=== PATIENT | female | born 1975 | race Asian ===

== ENCOUNTER 2020-08-09 15:56 | Emergency (ER) | payer MEDICAID, MEDICARE ==
[~2020-08-09] VITALS: Ht 162.6 cm; Wt 56.7 kg
[2020-08-09 15:56] VITALS: BP_SYST 129
[2020-08-09 16:43] LABS: BILIRUBIN,URINE NEGATIVE (NEGATIVE); BLOOD, URINE 1+ (NEGATIVE); CLARITY/URINE CLEAR (CLEAR); COLOR,URINE YELLOW (YELLOW); GLUCOSE,URINE NEGATIVE (NEGATIVE); KETONES,URINE NEGATIVE (NEGATIVE); LEUKOCYTE ESTERASE ,URINE NEGATIVE (NEGATIVE); NITRITE, URINE NEGATIVE (NEGATIVE); PROTEIN URINE NEGATIVE (NEGATIVE)
[2020-08-09 16:53] LABS: BASOPHILS % (AUTO) 0.8 % (0.0-2.0); EOSINOPHILS # (AUTO) 0.1 K/uL (0.0-0.4); EOSINOPHILS % (AUTO) 2.3 % (0.0-4.0); HEMATOCRIT 37.2 % (36-48); HEMOGLOBIN 12.6 g/dL (12.0-16.0); LYMPHOCYTES # (AUTO) 1.7 K/uL (1.0-5.5); LYMPHOCYTES % (AUTO) 33.6 % (20.5-51.5); MEAN CORPUSCULAR HEMOGLOBIN 29 pg (27-31); MEAN CORPUSCULAR HGB CONC 34 % (32-36); MEAN CORPUSCULAR VOLUME 86 fL (79.0-98.0); MONOCYTES # (AUTO) 0.5 K/uL (0.0-1.0); MONOCYTES % (AUTO) 9.1 % (1.7-9.3); NEUTROPHILS # (AUTO) 2.8 K/uL (1.8-7.7); NEUTROPHILS % (AUTO) 54.2 % (40.0-70.0); PLATELET COUNT (AUTO) 281 K/uL (130-430); RED BLOOD CELL COUNT(AUTO) 4.32 MIL/uL (4.2-6.2); RED CELL DISTRIBUTION WIDTH 13.2 % (9.0-15.0); WHITE BLOOD COUNT (AUTO) 5.2 K/uL (4.8-10.8)
[2020-08-09 16:59] LABS: BARBITURATE, URINE NEGATIVE (NEG <=200); URINE AMPHETAMINE NEGATIVE (NEG <=500)
[2020-08-09 17:00] LABS: ANION GAP 8 (5-15); BACTERIA,URINE FEW /HPF (None Seen); BENZODIAZEPINE, URINE NEGATIVE (NEG <=150); CALCIUM 8.7 mg/dL (8.4-11.0); CANNABINOID, URINE NEGATIVE (NEG <=50); CHLORIDE 107 mmol/L (98-107); COCAINE, URINE NEGATIVE (NEG <=150); CREATININE 0.65 mg/dL (0.55-1.30); GLUCOSE 102 mg/dL (70-99); METHAMPHETAMINES SCREEN,URINE NEGATIVE (NEG <=500); MUCUS,URINE None Seen /LPF (None Seen); OPIATE, URINE NEGATIVE (NEG <=100); PHENCYCLIDINE SCREEN,URINE NEGATIVE (NEG <=25); POTASSIUM 3.6 mmol/L (3.5-5.1); PROTHROMBIN TIME 10.1 SECS (9.5-12.5); RBC,URINE 0-3 /HPF (0-3); SODIUM SERUM 142 mmol/L (136-145); UR TRICYCLIC ANTIDEPRESSANTS NEGATIVE (NEG <=300); UREA NITROGEN, BLOOD 12 mg/dL (8-21); URINE METHADONE NEGATIVE (NEG <=200); URINE OXYCODONE SCREEN NEGATIVE (NEG <=100); URINE PROPOXYPHENE SCREEN NEGATIVE (NEG <=300); WBC,URINE 0-3 /HPF (0-3)
[2020-08-09 17:14] LABS: ALANINE AMINOTRANSFERASE 20 U/L (12-78); ALBUMIN 3.6 g/dL (3.4-4.8); ASPARTATE AMINOTRANSFERASE 15 U/L (10-37); TOTAL BILIRUBIN 0.7 mg/dL (0.0-1.0)
[2020-08-09 17:15] LABS: ALCOHOL, BLOOD < 3 mg/dL (<10); GFR AFRICAN AMERICAN 127 mL/min (>90)
[2020-08-09 18:12] VITALS: BP_SYST 129
== END 2020-08-09 18:13 | disposition home or self-care (01) ==
LOC: SED 15:56
DX: R55 Syncope and collapse (principal); E03.9 Hypothyroidism, unspecified
CPT/HCPCS: 36415; 70450; 71045; 76376; 80053; 80307; 81000; 81025; 84484; 85025; 85610; 85730; 93005; 99285; G0482

== ENCOUNTER 2022-12-03 16:42 | Emergency (ER) | payer MEDICAID ==
[~2022-12-03] VITALS: Ht 162.6 cm; Wt 56.7 kg
[2022-12-03 16:42] VITALS: BP_SYST 148; PULSE 99; RESP 18; TEMP 98.7; O2SAT 96
[2022-12-03] MEDS ORDERED: levETIRAcetam 1,000 MG in NS 90 ML IV ONE (17:30)
[2022-12-03 17:52] LABS: BASOPHILS % (AUTO) 0.5 % (0.0-2.0); EOSINOPHILS # (AUTO) 0.3 K/uL (0.0-0.4); EOSINOPHILS % (AUTO) 5.9 % (0.0-4.0); HEMATOCRIT 39.3 % (36-48); HEMOGLOBIN 12.9 g/dL (12.0-16.0); LYMPHOCYTES # (AUTO) 1.7 K/uL (1.0-5.5); LYMPHOCYTES % (AUTO) 29.1 % (20.5-51.5); MEAN CORPUSCULAR HEMOGLOBIN 28 pg (27-31); MEAN CORPUSCULAR HGB CONC 33 % (32-36); MEAN CORPUSCULAR VOLUME 86 fL (79.0-98.0); MONOCYTES # (AUTO) 0.7 K/uL (0.0-1.0); MONOCYTES % (AUTO) 11.8 % (1.7-9.3); NEUTROPHILS # (AUTO) 3.1 K/uL (1.8-7.7); NEUTROPHILS % (AUTO) 52.7 % (40.0-70.0); PLATELET COUNT (AUTO) 259 K/uL (130-430); RED BLOOD CELL COUNT(AUTO) 4.55 MIL/uL (4.2-6.2); RED CELL DISTRIBUTION WIDTH 12.7 % (9.0-15.0); WHITE BLOOD COUNT (AUTO) 5.9 K/uL (4.8-10.8)
[2022-12-03 18:03] LABS: CALCIUM 8.1 mg/dL (8.4-11.0); CREATININE 0.52 mg/dL (0.55-1.30); POTASSIUM 3.8 mmol/L (3.5-5.1)
[2022-12-03] MEDS ORDERED: LEVE500T9 PO (19:58)
[2022-12-03 20:31] VITALS: BP_SYST 132; PULSE 77; RESP 16; TEMP 97.7; O2SAT 97
== END 2022-12-03 20:31 | disposition home or self-care (01) ==
LOC: SED 16:42
DX: R56.9 Unspecified convulsions (principal); R55 Syncope and collapse; R51.9 Headache, unspecified; R42 Dizziness and giddiness; Z79.899 Other long term (current) drug therapy
CPT/HCPCS: 99285; 96365; 70450; 80048; 82962; 85025; 84484; 36415; 93005; 76376; 81025; J1953